=== PATIENT | male | born 1935 | race Caucasian/White ===

== ENCOUNTER 2016-07-21 11:13 | Emergency (ER) | payer MEDICARE, OTHER ==
--- NOTE | 2016-07-21 11:33 | EDM.PDOC ---
ED HPI GENERAL MEDICAL PROBLEM - General Chief Complaint: Upper Extremity Injury/Pain Stated Complaint: FALL,RIB PAIN Time Seen by Provider: 07/21/16 11:25 - History of Present Illness INITIAL COMMENTS - FREE TEXT/NARRATIVE: HISTORY AND PHYSICAL: History of present illness: Patient is a 80-year-old white male presents with concern of status post fall who injured his left shoulder ribs and upper back he denies head or neck pain or trauma denies dizziness palpitations shortness of breath or other concern Review of systems: As per history of present illness and below otherwise all systems reviewed and negative. Past medical history: As per history of present illness and as reviewed below otherwise noncontributory. Surgical history: As per history of present illness and as reviewed below otherwise noncontributory. Social history: No reported history of drug or alcohol abuse. Family history: As per history of present illness and as reviewed below otherwise noncontributory. Physical exam: HEENT: Atraumatic, normocephalic, pupils reactive, negative for conjunctival pallor or scleral icterus, mucous membranes moist, throat clear, neck supple, nontender, trachea midline. Lungs: Clear to auscultation, breath sounds equal bilaterally, chest tenderness noted region of the left anterior chest over his ribs at the level of the fourth fifth and sixth and the anterior axillary line Heart: S1S2, regular, negative for clicks, rubs, or JVD. Abdomen: Soft, nondistended, nontender. Negative for masses or hepatosplenomegaly. Negative for costovertebral tenderness. Pelvis: Stable nontender. Genitourinary: Deferred. Rectal: Deferred. Extremities: Patient has some tenderness of his left shoulder he has no significant limited range of motion no crepitation CMS neurovascular is unremarkable he also some tenderness over his left scapular region palpation Neuro: Awake, alert, oriented. Cranial nerves II through XII unremarkable. Cerebellum unremarkable. Motor and sensory unremarkable throughout. Exam nonfocal. Diagnostics: X-ray left shoulder scapula left ribs with chest Therapeutics: None Impression: #1 observation status post fall #2 acute left shoulder injury #3 acute left rib injury #4 left upper back injury Definitive disposition and diagnosis as appropriate pending reevaluation and review of above. Left Shoulder and Ribs Pain Score (Numeric/FACES): 8 - Related Data Allergies Allergy/AdvReac Type Severity Reaction Status Date / Time capsaicin Allergy Other Verified 07/21/16 11:29 latex Allergy Other Verified 07/21/16 11:29 Sulfa (Sulfonamide Allergy Other Verified 07/21/16 11:29 Antibiotics) Home Meds: Home Meds ALPRAZolam [Alprazolam] 0.5 mg PO DAILY 07/21/16 [History] Allopurinol [Zyloprim] 100 mg PO DAILY 07/21/16 [History] Amiodarone [Cordarone] 200 mg PO DAILY 07/21/16 [History] Carvedilol 12.5 mg PO DAILY 07/21/16 [History] Fenofibrate 150 mg PO DAILY 07/21/16 [History] Hydrocodone/Acetaminophen [Hydrocodon-Acetaminophn 10-325] 1 tab PO Q4H PRN [History] Levocetirizine Dihydrochloride 5 mg PO DAILY 07/21/16 [History] Omeprazole 20 mg PO DAILY 07/21/16 [History] Promethazine/Phenyleph/Codeine [Cmddeohclfyq-KK-Tarfbpv Syrup] 118 ml PO DAILY 07/21/16 [History] Rivaroxaban [Xarelto] 15 mg PO DAILY 07/21/16 [History] Sertraline [Zoloft] 100 mg PO DAILY 07/21/16 [History] Telmisartan 40 mg PO DAILY 07/21/16 [History] atorvaSTATin [Lipitor] 10 mg PO BEDTIME 07/21/16 [History] guaiFENesin/Codeine Phosphate [Guaiatussin AC Liquid] 10 ml PO 07/21/16 [History ] Past Medical History HEENT History: Reports: Impaired Vision Cardiovascular History: Reports: Afib, High Cholesterol, Hypertension Musculoskeletal History: Reports: Gout Psychiatric History: Reports: Anxiety - Past Surgical History Musculoskeletal Surgical History: Reports: Knee Replacement, Shoulder Surgery Social & Family History - Family History Family Medical History: Noncontributory - Tobacco Use Smoking Status *Q: Never Smoker - Recreational Drug Use Recreational Drug Use: No Review of Systems - Review of Systems Review Of Systems: ROS reveals no pertinent complaints other than HPI. Trauma Exam - Physical Exam Exam: See Below (See dictation) Course - Vital Signs Last Recorded V/S: Last Vital Signs Temp 36.6 C 07/21/16 11:23 Pulse 66 07/21/16 11:23 Resp 16 07/21/16 11:23 BP 147/83 H 07/21/16 11:23 Pulse Ox 95 07/21/16 11:23 Departure - Departure Time of Disposition: 13:50 Disposition: Home, Self-Care 01 Condition: good Clinical Impression: Rib fractures - Discharge Information Forms: ED Department Discharge Additional Instructions: The following information is given to patients seen in the emergency department who are being discharged to home. This information is to outline your options for follow-up care. We provide all patients seen in our emergency department with a follow-up referral. The need for follow-up, as well as the timing and circumstances, are variable depending upon the specifics of your emergency department visit. If you don't have a primary care physician on staff, we will provide you with a referral. We always advise you to contact your personal physician following an emergency department visit to inform them of the circumstance of the visit and for follow-up with them and/or the need for any referrals to a consulting specialist. The emergency department will also refer you to a specialist when appropriate. This referral assures that you have the opportunity for followup care with a specialist. All of these measure are taken in an effort to provide you with optimal care, which includes your followup. Under all circumstances we always encourage you to contact your private physician who remains a resource for coordinating your care. When calling for followup care, please make the office aware that this follow-up is from your recent emergency room visit. If for any reason you are refused follow-up, please contact the [facility] emergency department at and asked to speak to the emergency department charge nurse. Hydrocodone incentives spirometry as directed follow up primary medical doctor one to 2 days return as needed as discussed
--- NOTE | 2016-07-21 12:46 | CR ---
EXAMINATION: Two-view chest (PA and Lateral views). HISTORY: Shortness of breath. FINDINGS: The trachea is midline. The cardiomediastinal silhouette is within normal limits. There is mild biba silar atelectasis. There is a small to moderate hiatal hernia. No pleural effusion or pneumothorax. Osseous structures appear unremarkable. IMPRESSION: Mild bibasilar atelectasis and a small to moderate hiatal hernia.
--- NOTE | 2016-07-21 12:47 | CR ---
EXAMINATION: Left shoulder HISTORY: Pain COMPARISON: None TECHNIQUE: 3 views FINDINGS/IMPRESSION: There is no acute osseous abnormality, dislocation, or fracture identified. The left humerus is mildly high riding suggesting underlying rotator cuff arthropathy. Advanced glenohu meral osteoarthritic changes and joint space narrowing is noted.
--- NOTE | 2016-07-21 12:56 | CR ---
EXAMINATION: Left RIBS HISTORY: Pain COMPARISON: Chest radiograph from the same day TECHNIQUE: 3 views FINDINGS/IMPRESSION: There are a few nondisplaced rib fractures identified, likely the fifth, sixth and possibly seventh of the ribs. No definite pneumothorax or pleural effusion..
--- NOTE | 2016-07-21 12:57 | CR ---
EXAMINATION: Left scapula HISTORY: Trauma COMPARISON: None TECHNIQUE: 2 views FINDINGS/IMPRESSION: There is no acute osseous abnormality, dislocation, or fracture identified. Gle nohumeral osteoarthritic changes are noted. The bone mineralization appears normal except mildly ost eopenic.
[2016-07-21 15:12] VITALS: BP 128/72
== END 2016-07-21 14:13 | disposition home or self-care (01) ==
LOC: MW.ED 11:13
DX: S22.49XA Multiple fractures of ribs, unspecified side, initial encounter for closed fracture (principal); W19.XXXA Unspecified fall, initial encounter; Y92.9 Unspecified place or not applicable; M54.6 Pain in thoracic spine; I48.91 Unspecified atrial fibrillation; E78.00 Pure hypercholesterolemia, unspecified; I10 Essential (primary) hypertension; M10.9 Gout, unspecified; F41.9 Anxiety disorder, unspecified; Z79.899 Other long term (current) drug therapy
CPT/HCPCS: 71020; 71020-26; 71100-26-LT; 71100-LT; 73010-26-LT; 73010-LT; 73030-26-LT; 73030-LT; 99283